=== PATIENT | female | born 1990 | race Caucasian/White ===

== ENCOUNTER 2016-12-16 09:06 | Day surgery (SDC) | payer MEDICAID ==
[2016-12-16] MEDS ORDERED: PROPOFOL 200 MG/20 ML VIAL ONE (09:50)
[2016-12-16] MEDS ORDERED: DEXMEDETOMIDINE HCL 400 MCG in NS 100 ML IV ONE (10:00)
[2016-12-16] MEDS ORDERED: fentaNYL 100 MCG/2 ML INJ ONE ×2 (10:01→10:09)
[2016-12-16] MEDS ORDERED: MIDAZOLAM 2 MG/2 ML VIAL ONE ×2 (10:01→10:08)
[2016-12-16] MEDS ORDERED: ETOMIDATE 20 MG/10 ML VIAL ONE (10:03)
[2016-12-16] MEDS ORDERED: GLYCOPYRROLATE 0.2 MG/1 ML VIAL ONE (10:12)
[2016-12-16] MEDS ORDERED: epHEDrine SULFATE 10 MG/ML SYR ONE ×2 (10:13)
--- NOTE | 2016-12-16 11:41 | GPN ---
PREPROCEDURE DIAGNOSIS: Nausea, vomiting, diffuse abdominal pain, epigastric abdominal pain, diarrhea, constipation and family history of colon cancer and colon polyps. POSTPROCEDURE DIAGNOSIS: 1. Normal upper and lower endoscopy. MEDICATIONS: Monitored anesthesia care. PROCEDURES: 1. EGD with biopsies. 2. Colonoscopy with biopsies. INDICATIONS: The patient is a 26-year-old female with a strong family history of colon cancer and colon polyps who is followed by Dr. Handley in GI clinic. She also has a history of nausea, vomiting and diffuse abdominal pain, as well as epigastric abdominal pain, diarrhea, constipation and is here for upper and lower endoscopy. The risks and benefits of the procedure were discussed with the patient and consent obtained. Risks include, but not limited to, bleeding, perforation, and risks related to sedation. The patient is ASA class 2. DESCRIPTION OF PROCEDURE: The end-viewing endoscope inserted into the esophagus , into the stomach and second portion of the duodenum. The esophagus appears normal. The GE junction is located at 40 cm from incisors. There is no evidence of Salas esophagus, varices or esophagitis. The stomach appears normal. Biopsies were taken of the gastric antrum along the incisura and along the greater curvature for Helicobacter pylori using cold biopsy forceps. The duodenum and second portion is normal. Biopsies were taken again using cold biopsy forceps to evaluate for celiac sprue. The patient was then repositioned and the colonoscope was advanced to the terminal ileum which appeared normal. 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 There were no polyps. Random biopsies taken throughout the colon to evaluate for microscopic colitis given the history of diarrhea. Retroflexed views in the rectum were normal. IMPRESSION: Normal upper and lower endoscopy status post biopsies of the stomach, duodenum, and random colon. RECOMMENDATION: 1. Discharge home with escort. 2. Advance diet as tolerated. 3. Continue present medications. 4. Repeat colonoscopy determined based on Dr. Handley's recommendations in GI clinic depending on possible hereditary polyposis syndrome. 5. Follow up the final biopsy results. Results available within 10 days. Thank you for allowing me to participate in the care of your patient. Please do not hesitate to call with questions. /[id number]/[id number]
== END 2016-12-16 12:15 | disposition home or self-care (01) ==
LOC: FSGY 09:06 → EEVIPCON 10:15 → FSGY 12:15
PROVIDERS: ATTEND Internal Medicine Gastroenterology
PROC: 0DB68ZX Excision of Stomach, Via Natural or Artificial Opening Endoscopic, Diagnostic (ICD-10-PCS; principal; 2016-12-16 10:15)
PROC: 0DBE8ZX Excision of Large Intestine, Via Natural or Artificial Opening Endoscopic, Diagnostic (ICD-10-PCS; principal; 2016-12-16 10:15)
PROC: 0DB98ZX Excision of Duodenum, Via Natural or Artificial Opening Endoscopic, Diagnostic (ICD-10-PCS; principal; 2016-12-16 10:15)
DX: Z80.0 Family history of malignant neoplasm of digestive organs (principal); Z83.71 Family history of colonic polyps; R11.2 Nausea with vomiting, unspecified; R10.13 Epigastric pain; K59.00 Constipation, unspecified; R19.7 Diarrhea, unspecified; K63.89 Other specified diseases of intestine; R53.83 Other fatigue
CPT/HCPCS: J2250; J2704; J3010